=== PATIENT | male | born 1970 | race Two or more races ===

== ENCOUNTER 2021-12-13 14:52 | Emergency (ER) | payer MEDICAID ==
[~2021-12-13] VITALS: Ht 182.9 cm; Wt 90.0 kg
[2021-12-13 15:25] VITALS: BP 124/83
[2021-12-13] MEDS ORDERED: ketorolac tromethamine 15mg/ml inj. IM ONE (15:50)
[2021-12-13] MEDS ORDERED: IBUP-1984 PO (16:48)
== END 2021-12-13 17:06 | disposition home or self-care (01) ==
LOC: ER 14:52
DX: M25.521 Pain in right elbow (principal); F12.90 Cannabis use, unspecified, uncomplicated; F15.90 Other stimulant use, unspecified, uncomplicated; F10.10 Alcohol abuse, uncomplicated; Z56.0 Unemployment, unspecified; Z79.899 Other long term (current) drug therapy; Y90.9 Presence of alcohol in blood, level not specified; W01.0XXA Fall on same level from slipping, tripping and stumbling without subsequent striking against object, initial encounter; Y93.89 Activity, other specified; Y92.89 Other specified places as the place of occurrence of the external cause; Y99.8 Other external cause status
CPT/HCPCS: 73090; 96372; 99284; J1885